=== PATIENT | female | born 1980 | race Caucasian/White ===

== ENCOUNTER 2020-07-10 10:05 | Emergency (ER) | payer MEDICAID ==
[~2020-07-10] VITALS: Ht 160 cm; Wt 59.0 kg
[2020-07-10 11:10] LABS: Eosinophils # (auto) 0 10 ^3/uL (0-0.8); Monocytes # (auto) 0.8 10 ^3/uL (0-1.3); Neutrophils # (auto) 8.1 10 ^3/uL (1.6-8.6); Nucleated Red Blood Cells % 0.1 %
[2020-07-10 11:11] LABS: Basophils # (auto) 0 10 ^3/uL (0-0.2); Basophils % (auto) 0.4 % (0.0-2.0); Eosinophils % (auto) 0.1 % (0.0-7.0); Hematocrit 40.4 % (36.0-46.0); Hemoglobin 14.3 g/dL (12.2-16.2); Lymphocytes # (auto) 0.6 10 ^3/uL (0.4-5.4); Lymphocytes % (auto) 5.9 % (10.0-50.0); Mean Corpuscular Hemoglobin 39.5 pg (28.0-32.0); Mean Corpuscular Hgb Conc. 35.3 g/dL (32.0-36.0); Mean Corpuscular Volume 111.8 fL (80.0-100.0); Monocytes % (auto) 8.7 % (0.0-12.0); Neutrophils % (auto) 84.9 % (37.0-80.0); Platelet Count (auto) 197 10^3/uL (140-450); Red Blood Cells 3.61 10^6/uL (4.0-5.20); Red Cell Distribution Width 14.6 % (11.8-14.3); White Blood Cell 9.6 10^3/uL (4.4-10.8)
[2020-07-10 11:21] LABS: INR 1.21 (0.9-1.15); Partial Thromboplastin Time 26.1 sec (23.0-31.2)
[2020-07-10 11:25] LABS: Albumin 3.3 g/dL (3.4-5.0); Anion Gap 21 (5-15); Calcium 9.5 mg/dL (8.5-10.1); Carbon Dioxide 26 mmol/L (21-32); Chloride 86 mmol/L (98-107); Glucose 125 mg/dL (74-106); Sodium 133 mmol/L (136-145)
[2020-07-10 11:33] LABS: Alanine Aminotransferase 136 U/L (13-56); Alkaline Phosphatase 213 U/L (45-117); Aspartate Aminotransferase 402 U/L (15-37); BUN/Creatinine Ratio 11.5; Bilirubin, Total 7.9 mg/dL (0.2-1.0); Blood Urea Nitrogen 7 mg/dL (7-18); GFR African American 141 mL/min; GFR Non-African American 117 mL/min; Total Protein 7.6 g/dL (6.4-8.2)
[2020-07-10 11:50] LABS: Potassium 2.6 mmol/L (3.5-5.1)
[2020-07-10] MEDS ORDERED: POTASSIUM EFFERVESENT TAB 25 MEQ PO ONE (12:00)
[2020-07-10] MEDS ORDERED: PROMETHAZINE HCL 25 MG/ML 1ML IV ONE (12:45)
[2020-07-10] MEDS ORDERED: POTASSIUM CHL 20MEQ/100ML 100 ML IV ONE (12:45)
[2020-07-10] MEDS ORDERED: PROMETHAZINE HCL 25 MG/ML 1ML ONE (12:47)
[2020-07-10 15:31] VITALS: BP 122/73
== END 2020-07-10 15:48 | disposition home or self-care (01) ==
LOC: ER 10:05
DX: K76.9 Liver disease, unspecified (principal); R07.9 Chest pain, unspecified; E87.6 Hypokalemia; R00.2 Palpitations
CPT/HCPCS: 36415; 71045; 74176; 80053; 83690; 84484; 84702; 85025; 85610; 85730; 96365; 96375; 99285; J2550; J3480